=== PATIENT | male | born 1985 | race African-American/Black ===

== ENCOUNTER 2021-02-13 17:18 | Emergency (ER) | payer SELFPAY ==
[~2021-02-13] VITALS: Ht 170.2 cm; Wt 29.6 kg
[2021-02-13] MEDS ORDERED: LevETIRAcetam 1,000 MG in DEXTROSE 5%-WATER 100 ML IV ONE (18:00)
[2021-02-13 18:57] LABS: ANION GAP 12 mmol/L (8-16); CALCIUM, TOTAL 8.7 mg/dL (8.8-10.5); CARBON DIOXIDE 27 mmol/L (22-29); CHLORIDE 106 mmol/L (98-107); CREATININE 0.91 mg/dL (0.60-1.30); GLOMERULAR FILTR. RATE CALC > 60 mL/min (>60); GLUCOSE,RANDOM 76 mg/dL (70-110); POTASSIUM 3.5 mmol/L (3.5-5.1); SODIUM SERUM 145 mmol/L (136-145); UREA NITROGEN, BLOOD 11 mg/dL (7-18)
[2021-02-13 23:00] VITALS: BP 126/70
== END 2021-02-13 23:05 | disposition home or self-care (01) ==
LOC: EMS 17:22
DX: G40.909 Epilepsy, unspecified, not intractable, without status epilepticus (principal); F10.129 Alcohol abuse with intoxication, unspecified; F17.290 Nicotine dependence, other tobacco product, uncomplicated
CPT/HCPCS: 36415; 80048; 96374; 99285; G0480; J0712; J7060